=== PATIENT | female | born 1985 | race Two or more races ===

== ENCOUNTER 2017-01-06 19:30 | Outpatient (CLI) | payer OTHER ==
[~2017-01-06] VITALS: Ht 157.5 cm; Wt 85.0 kg
[2017-01-06 20:00] VITALS: BP 136/80
[2017-01-06 20:33] VITALS: BP 131/72
[2017-01-06 20:34] VITALS: BP 141/68
[2017-01-06 20:35] VITALS: BP 133/70
== END 2017-01-06 21:00 | disposition home or self-care (01) ==
LOC: M LDO 19:30
PROVIDERS: ATTEND Student in an Organized Health Care Education/Training Program
DX: O26.893 Other specified pregnancy related conditions, third trimester (principal); R11.0 Nausea; R42 Dizziness and giddiness; Z3A.38 38 weeks gestation of pregnancy

== ENCOUNTER 2017-01-26 09:49 | Inpatient (IN) | payer OTHER, SELFPAY ==
[~2017-01-26] VITALS: Ht 157.5 cm; Wt 89.5 kg
[2017-01-26] VITALS (7 sets, daily range): BP systolic 110–134; BP diastolic 60–71
[2017-01-26] MEDS ORDERED: TUMS500C PO (10:42)
[2017-01-26] MEDS ORDERED: LACTATED RINGER'S 1000 ML IV STA (11:16)
[2017-01-26] MEDS ORDERED: BICITRA 30ML SOLN UDC As Ordered ONE (11:56)
[2017-01-26] MEDS ORDERED: ceFAZolin 2 GM/D5W 50 ML IV BAG (J0690) As Ordered ONE (11:56)
[2017-01-26 12:09] LABS: MEAN CORPUSCULAR HEMOGLOBIN 27.4 pg (27.0-33.0); MEAN CORPUSCULAR HGB CONC 34.4 g/dl (32.0-36.5); MEAN CORPUSCULAR VOLUME 79.6 fl (80.0-96.0); RED CELL DISTRIBUTION WIDTH 15.2 % (11.5-14.5); WHITE BLOOD COUNT 17.5 K/mm3 (4.0-10.0)
[2017-01-26] MEDS ORDERED: MIDAZOLAM INJ 2 MG/2 ML VIAL (J2250) As Ordered ONE ×2 (12:13→13:00)
[2017-01-26] MEDS ORDERED: fentaNYL 100 MCG/2 ML INJECTION (J3010) As Ordered ONE ×3 (12:13→12:52)
[2017-01-26] MEDS ORDERED: SUCCINYLCHOLINE 100 MG/5 ML SYRINGE (J0330) As Ordered ONE (12:22)
[2017-01-26] MEDS ORDERED: PROPOFOL 200 MG/20 ML VIAL As Ordered ONE (12:22)
[2017-01-26] MEDS ORDERED: ceFAZolin 1GM INJ (J0690) As Ordered ONE (12:22)
[2017-01-26] MEDS ORDERED: METOCLOPRAMIDE INJ 10MG/2ML VIAL (J2765) As Ordered ONE (12:23)
[2017-01-26] MEDS ORDERED: KETOROLAC 60 MG/2 ML VIAL (J1885) As Ordered ONE (12:24)
[2017-01-26] MEDS ORDERED: ONDANSETRON 4MG/2ML VIAL (J2405) As Ordered ONE ×2 (12:24→13:20)
[2017-01-26] MEDS ORDERED: PHENYLephrine HCL 500 MCG/5 ML (100MCG/ML) SYRINGE (J2370) As Ordered ONE (12:25)
[2017-01-26 12:28] LABS: CORD GAS ABE V -5.9; CORD GAS O2 SAT V 85.3 %; CORD GAS PH V 7.307 UNITS; CORD GAS PO2 V 44.9 mmHg; CORD GAS SBC V 19.4 MEQ/L; CORD GAS TCO2 V 21.3 MEQ/L
[2017-01-26 12:31] LABS: CORD GAS ABE A -2.7; CORD GAS HCO3 A 26.8 MEQ/L; CORD GAS O2 SAT A 21.1 %; CORD GAS PCO2 A 65.3 mmHg; CORD GAS PH A 7.231 UNITS; CORD GAS PO2 A 14.9 mmHg; CORD GAS SBC A 20.1 MEQ/L; CORD GAS TCO2 A 28.8 MEQ/L
[2017-01-26] MEDS ORDERED: OXYTOCIN INJ 10 UNITS/ML VIAL (J2590) As Ordered ONE (12:43)
[2017-01-26] MEDS ORDERED: OXYTOCIN 30 UNITS IN 0.9% NaCl 500ML IV BAG (J2590) As Ordered ONE (12:44)
[2017-01-26] MEDS ORDERED: OXYTOCIN DRIP 30 UNITS in APPROPRIATE DILUENT 1 EA IV SCH (12:55)
[2017-01-26] MEDS ORDERED: NS 1,000 ML IV SCH (12:57)
[2017-01-26] MEDS ORDERED: NALOXONE INJ 0.4 MG/1 ML VIAL (J2310) IV PRN (13:00)
[2017-01-26] MEDS ORDERED: PERCOCET 5MG/325MG TAB PO PRN ×3 (13:00→13:45)
[2017-01-26] MEDS ORDERED: NALBUPHINE HCL 10 MG/ML AMP (J2300) IV PRN (13:00)
[2017-01-26] MEDS ORDERED: RHOGAM 300 MCG (1500 IU) INJ (J2790) IM SCH (13:00)
[2017-01-26] MEDS ORDERED: METHYLERGONOVINE MALEATE 0.2 MG/ML VIAL (J2210) IM PRN (13:00)
[2017-01-26] MEDS ORDERED: MORPHINE 1MG/ML IN 0.9% NACL 100ML IV BAG IV PRN (13:00)
[2017-01-26] MEDS ORDERED: PROMETHAZINE 25 MG TAB PO PRN (13:00)
[2017-01-26] MEDS ORDERED: diphenhydrAMINE INJ 50MG/ML VIAL (J1200) IV PRN (13:00)
[2017-01-26] MEDS ORDERED: EPIDURAL/PCA KEYS XX PRN (13:00)
[2017-01-26] MEDS ORDERED: ONDANSETRON 4MG/2ML VIAL (J2405) IV PRN ×3 (13:00→13:45)
[2017-01-26] MEDS ORDERED: MEASLES,MUMPS,RUBELLA VACCINE INJ (MMR-II) (90707) SC SCH (13:00)
[2017-01-26] MEDS ORDERED: MORPHINE 1MG/ML IN 0.9% NACL 100ML IV BAG As Ordered ONE (13:12)
[2017-01-26] MEDS ORDERED: MEPERIDINE INJ 25 MG/ML VIAL (J2175) As Ordered ONE (13:14)
[2017-01-26] MEDS: MEPERIDINE INJ 25 MG/ML VIAL (J2175) IV PRN ×2 (13:15→13:21)
--- NOTE | 2017-01-26 13:29 | REP ---
Clinical: Stat section without operative count. Technique: Portable supine view of the abdomen and pelvis. Findings: Bowel gas pattern is nonspecific. No foreign body material appreciated. Impression: No foreign body identified. Signed by Buzz Holcomb MD 01/26/2017 01:20 P
[2017-01-26] MEDS ORDERED: fentaNYL 100 MCG/2 ML INJECTION (J3010) IV PRN (13:45)
[2017-01-26] MEDS ORDERED: METOCLOPRAMIDE INJ 10MG/2ML VIAL (J2765) IV PRN (13:45)
[2017-01-26] MEDS ORDERED: LR 1,000 ML IV SCH (13:45)
[2017-01-26] MEDS: KETOROLAC 30 MG/ML VIAL (J1885) IV SCH (19:17)
[2017-01-26] MEDS: DOCUSATE SODIUM 100 MG CAP PO SCH (20:10)
[2017-01-26] MEDS: PRENATAL VITAMINS CHEWABLE TABLET PO SCH (20:10)
[2017-01-26] MEDS: LR 1,000 ML IV SCH (20:11)
[2017-01-27] MEDS: KETOROLAC 30 MG/ML VIAL (J1885) IV SCH ×2 (01:40→06:46)
[2017-01-27 02:22] VITALS: BP 124/64
[2017-01-27] MEDS: LR 1,000 ML IV SCH ×2 (04:09→12:55)
[2017-01-27 06:27] VITALS: BP 120/59
[2017-01-27 07:01] LABS: MEAN CORPUSCULAR HEMOGLOBIN 27.8 pg (27.0-33.0); MEAN CORPUSCULAR HGB CONC 34.2 g/dl (32.0-36.5); MEAN CORPUSCULAR VOLUME 81.2 fl (80.0-96.0); RED CELL DISTRIBUTION WIDTH 15.6 % (11.5-14.5)
[2017-01-27] MEDS: DOCUSATE SODIUM 100 MG CAP PO SCH ×2 (08:06→21:55)
[2017-01-27] MEDS: PRENATAL VITAMINS CHEWABLE TABLET PO SCH (08:06)
[2017-01-27 10:00] VITALS: BP 117/59
[2017-01-27 14:00] VITALS: BP 124/71
[2017-01-27] MEDS: IBUPROFEN 800 MG TAB PO SCH ×2 (15:05→22:49)
[2017-01-27 17:58] VITALS: BP 129/63
[2017-01-27 22:07] VITALS: BP 116/66
[2017-01-28 05:50] VITALS: BP 107/56
[2017-01-28] MEDS: IBUPROFEN 800 MG TAB PO SCH (06:57)
[2017-01-28] MEDS ORDERED: INFLUENZA QUADRIVALENT PF VACCINE 0.5ML SYRINGE (90686) IM ONE (09:00)
[2017-01-28] MEDS: PRENATAL VITAMINS CHEWABLE TABLET PO SCH (09:37)
[2017-01-28] MEDS: DOCUSATE SODIUM 100 MG CAP PO SCH (09:37)
[2017-01-28] MEDS ORDERED: OXYC1TAB23 PO (12:58)
[2017-01-28] MEDS ORDERED: IBUP-1114 PO (12:58)
[2017-01-28] MEDS ORDERED: COLA100C5 PO (12:58)
--- NOTE | 2017-02-02 13:20 | IPN ---
DATE: 01/27/2017 Patient and requested circumcision of their male . After discussing the risks and benefits of circumcision, the medical and nonmedical indications, the penile block and the aftercare, expressed understanding penile block and aftercare, answered all questions, signed and witnessed the consent form. We await the clearance by the counselor aid.
== END 2017-01-28 14:25 | disposition home or self-care (01) | DRG 766 ==
LOC: M LDO 09:49 → M LDI 11:15 → M OBS 14:27
PROVIDERS: ADMIT Obstetrics & Gynecology; ATTEND Obstetrics & Gynecology
PROC: 10D00Z1 Extraction of Products of Conception, Low, Open Approach (ICD-10-PCS; principal; 2017-01-26 12:11)
DX: O48.0 Post-term pregnancy (principal); Z3A.41 41 weeks gestation of pregnancy; O76 Abnormality in fetal heart rate and rhythm complicating labor and delivery; O77.0 Labor and delivery complicated by meconium in amniotic fluid; Z37.0 Single live birth

== ENCOUNTER 2017-01-31 21:01 | Emergency (ER) | payer OTHER ==
[~2017-01-31] VITALS: Ht 157.5 cm; Wt 86.4 kg
[~2017-01-31 21:01] MED LIST: COLA100C5 PO; IBUP-1114 PO; OXYC1TAB23 PO; TUMS500C PO
[2017-01-31] MEDS ORDERED: ONDANSETRON 4MG/2ML VIAL (J2405) IV ONE (22:45)
[2017-01-31] MEDS ORDERED: MORPHINE 2 MG/ML 1ML SYRINGE IV ONE (22:45)
[2017-01-31] MEDS ORDERED: NS 1,000 ML IV ONE (22:45)
[2017-01-31 23:12] LABS: BASO % 0.2 % (0.0-1.0); EOS # 0.2 K/mm3 (0.0-0.50); LARGE UNSTAINED CELL # 0.2 K/mm3 (0.0-0.4); LYMPH # 1.5 K/mm3 (1.5-6.5); LYMPH % 9.9 % (24.0-44.0); MEAN CORPUSCULAR HEMOGLOBIN 27.4 pg (27.0-33.0); MEAN CORPUSCULAR HGB CONC 33.8 g/dl (32.0-36.5); MEAN CORPUSCULAR VOLUME 80.9 fl (80.0-96.0); MONO # 0.4 K/mm3 (0.0-0.8); MONO % 2.8 % (0.0-5.0); NEUTROPHILS % 85.1 % (36.0-66.0); PLATELET COUNT, AUTOMATED 359 k/mm3 (150-450); RED CELL DISTRIBUTION WIDTH 15.8 % (11.5-14.5); WHITE BLOOD COUNT 15.2 K/mm3 (4.0-10.0)
[2017-01-31 23:26] LABS: ALBUMIN 2.5 GM/DL (3.2-5.2); ALBUMIN/GLOBULIN RATIO 0.64 (1.00-1.93); ALKALINE PHOSPHATASE 164 U/L (45-117); ALT/SGPT 134 U/L (12-78); ANION GAP 10 MEQ/L (8-16); AST/SGOT 75 U/L (15-37); BILIRUBIN,TOTAL 0.3 MG/DL (0.2-1.0); BLOOD UREA NITROGEN 10 MG/DL (7-18); CALCIUM LEVEL 8.1 MG/DL (8.5-10.1); CARBON DIOXIDE LEVEL 25 MEQ/L (21-32); CHLORIDE LEVEL 107 MEQ/L (98-107); CREATININE FOR GFR 0.59 MG/DL (0.55-1.02); GLOMERULAR FILTRATION RATE > 60.0 (>60); GLUCOSE, FASTING 96 MG/DL (70-105); POTASSIUM SERUM 4.2 MEQ/L (3.5-5.1); SODIUM LEVEL 142 MEQ/L (136-145); TOTAL PROTEIN 6.4 GM/DL (6.4-8.2)
[2017-01-31] MEDS ORDERED: ISOVUE-370 76% 100ML VIAL (Q9967) As Ordered ONE (23:34)
[2017-01-31 23:52] LABS: AMYLASE 47 U/L (25-115)
[2017-02-01 02:04] VITALS: BP 125/79
[2017-02-01] MEDS ORDERED: NS 1,000 ML IV ONE (02:15)
[2017-02-01] MEDS ORDERED: MORPHINE 2 MG/ML 1ML SYRINGE IV ONE ×2 (02:15)
[2017-02-01] MEDS ORDERED: KETOROLAC 30 MG/ML VIAL (J1885) IV ONE (02:15)
--- NOTE | 2017-02-01 03:30 | REPUSA ---
CLINICAL HISTORY: Abdominal pain. TECHNIQUE: Realtime sonographic images were obtained in multiple projections. COMMENTS: The liver is of normal size, parenchyma demonstrates normal echogenicity. No discrete hepatic mass is seen. There is no intra or extrahepatic biliary ductal dilatation. CBD measures 5.7 mm. The gallbladder is physiologically distended without evidence of calculi. The gallbladder wall is not thickened measurin g 1.8 mm and there is no pericholecystic fluid. There is no abdominal ascites. The right kidney measures 12.1x6x4.6 cm, free of hydronephrosis. IMPRESSION: Unremarkable study. Thank you for your kind referral of this patient.
[2017-02-01] MEDS ORDERED: CEPHALEXIN 500 MG CAP PO ONE (04:15)
[2017-02-01] MEDS ORDERED: MAGNESIUM CITRATE 300 ML BTL PO ONE (04:15)
[2017-02-01] MEDS ORDERED: KEFL500C17 PO (04:16)
[2017-02-01] MEDS ORDERED: REGL10TA6 PO (04:32)
--- NOTE | 2017-02-02 13:20 | REP ---
CHEST, TWO VIEWS: Two views of the chest are performed. There are no prior studies for comparison. There are minor discoid atelectatic changes in the lung bases, without acute infiltrate. The cardiomediastinal silhouette is unremarkable and the visualized osseous structures are intact. IMPRESSION: No acute infiltrate. Signed by Valente Bowden MD 02/02/2017 07:01 P
--- NOTE | 2017-02-03 08:29 | REPUSA ---
CT of the abdomen and pelvis with contrast Clinical statement: Pain. Status post . Technique: Multiple axial CT images were obtained from the base of the lungs through the floor of the pelvis utilizing 5 mm axial slices after administration of nonionic intravenous contrast. Coronal an d sagittal reconstructions were also obtained. No comparison is available. Findings: Chest: The visualized lung bases demonstrate minimal atelectasis bilaterally. Abdomen: The spleen, pancreas, kidneys, gallbladder, and adrenal glands are unremarkable. The liver i s enlarged, measuring 27.5 cm in longest diameter. The aorta is within normal limits. There is no rell dence of abdominal lymphadenopathy or ascites. Pelvis: Moderate amount of stool fills the colon. The bowel is otherwise unremarkable, with no obstru ctive or inflammatory changes. The urinary bladder is within normal limits. The postgravid uterus rem ains enlarged. No gross uterine abnormalities are seen. There is no evidence of pelvic lymphadenopath y or ascites. Bones: There are no suspicious osseous abnormalities seen. Impression: 1. The postgravid uterus remains enlarged, but is grossly within normal limits. No focal uterine abno rmalities seen. 2. Minimal atelectasis in the lung bases bilaterally. 3. Hepatomegaly. 4. Moderate constipation. No obstructive or inflammatory bowel changes.
== END 2017-02-01 04:38 | disposition home or self-care (01) ==
LOC: M ED 21:01
DX: N30.90 Cystitis, unspecified without hematuria (principal); R94.5 Abnormal results of liver function studies; F41.9 Anxiety disorder, unspecified; F33.9 Major depressive disorder, recurrent, unspecified; F17.210 Nicotine dependence, cigarettes, uncomplicated
CPT/HCPCS: 71020; 74177; 76705; 80053; 81001; 82150; 83605; 83690; 85025; 86850; 86900; 86901; 87040; 87086; 96374; 96375; 96376; 99283; J1885; J2405; Q9967

== ENCOUNTER → 2017-02-17 | Outpatient (REF) | payer OTHER ==
[~2017-02-17] MED LIST changes: +KEFL500C17 PO; +REGL10TA6 PO
[2017-02-24 08:25] LABS: O+P EXAM Final report (.)
== END ==
LOC: M SFHCLERA 15:20
PROVIDERS: ATTEND Nurse Practitioner Family
DX: R19.7 Diarrhea, unspecified (principal)